=== PATIENT | male | born 1995 | race Caucasian/White ===

== ENCOUNTER 2016-05-21 03:30 | Emergency (ER) | payer SELFPAY ==
[2016-05-21 03:35] VITALS: RESP 18; O2SAT 97
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
[2016-05-21] MEDS ORDERED: HYDROCOD/APAP 5/325 PREPACK#6 BTL TAKEHOME ONE ×2 (06:52→06:54)
[2016-05-21 07:08] VITALS: BP 127/93; PULSE 95; TEMP 98.4
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
== END 2016-05-21 07:07 | disposition home or self-care (01) ==
DX: S02.402A Zygomatic fracture, unspecified side, initial encounter for closed fracture (principal); S62.111A Displaced fracture of triquetrum [cuneiform] bone, right wrist, initial encounter for closed fracture; F10.129 Alcohol abuse with intoxication, unspecified; Y08.89XA Assault by other specified means, initial encounter